=== PATIENT | female | born 1980 | race Two or more races ===

== ENCOUNTER 2017-01-23 16:43 | Emergency (ER) | payer SELFPAY ==
[~2017-01-23] VITALS: Ht 157.5 cm; Wt 54.4 kg
--- NOTE | 2017-01-23 16:45 | NUR ---
AAOX3, bibra 102 for new onset seizure witnessed by cousin, no trauma or injury reported, sz lasted 15 minutes per cousin, ED=680IE/DL and 5mg versed given prior to arrival. Assisted to hospital gown, placed on monitor. Will continuously monitor the patient. Awaiting MD for eval.
[2017-01-23 16:57] LABS: BASOPHILS % (AUTO) 0.5 % (0.0-2.0); EOSINOPHILS # (AUTO) 0.1 /CMM (0.0-0.7); EOSINOPHILS % (AUTO) 1.4 % (0.0-6.0); HEMATOCRIT 39 % (33-45); HEMOGLOBIN 13.1 g/dL (11.5-14.8); LYMPHOCYTES # (AUTO) 2.4 /CMM (0.8-4.8); LYMPHOCYTES % (AUTO) 27.3 % (20.0-44.0); MEAN CORPUSCULAR HEMOGLOBIN 29 PG (26.0-33.0); MEAN CORPUSCULAR HGB CONC 34 g/dl (31.0-36.0); MEAN CORPUSCULAR VOLUME 85 fL (82-100); MONOCYTES # (AUTO) 0.4 /CMM (0.1-1.30); MONOCYTES % (AUTO) 4.4 % (2.0-12.0); NEUTROPHILS # (AUTO) 6.1 /CMM (1.8-8.9); NEUTROPHILS % (AUTO) 66.4 % (43.0-81.0); PLATELET COUNT (AUTO) 345 /CMM (150-450); RDW COEFFICIENT OF VARIATION 12.4 (11.5-15.0); RED BLOOD CELL COUNT(AUTO) 4.55 MIL/uL (4.0-5.2)
--- NOTE | 2017-01-23 16:59 | NUR ---
EKG in progress at BS
[2017-01-23] MEDS ORDERED: LEVETIRACETAM (500MG) 1,000 MG in IV NS 0.9% 100 ML IV ONE (17:00)
[2017-01-23] MEDS ORDERED: IV SET PRIMARY PUMP SET 1 EA INFUS.SET MC ONE (17:06)
[2017-01-23 17:07] LABS: CALCIUM, SERUM 8.8 mg/dL (8.5-10.1); CARBON DIOXIDE 24 mmol/L (21-32); CHLORIDE 105 mmol/L (98-107); CREATININE 0.8 mg/dL (0.6-1.3); GFR 81 mL/min (>60); GLUCOSE 99 mg/dL (74-106); POTASSIUM 3.3 mmol/L (3.5-5.1); SODIUM SERUM 140 mmol/L (136-145); UREA NITROGEN, BLOOD 8 mg/dL (7-18)
[2017-01-23 17:11] LABS: PROTHROMBIN TIME 10.4 SECS (9.5-12.7)
[2017-01-23 17:13] LABS: ALANINE AMINOTRANSFERASE 25 U/L (12-78); ALCOHOL, BLOOD < 3 mg/dL (0-0); ALKALINE PHOSPHATASE 87 U/L (46-116); ASPARTATE AMINOTRANSFERASE 23 U/L (15-37); BILIRUBIN,DIRECT 0.1 mg/dL (0.0-0.2); BILIRUBIN,TOTAL 0.2 mg/dL (0.2-1.0); TOTAL PROTEIN, SERUM 8.1 g/dL (6.4-8.2)
--- NOTE | 2017-01-23 17:44 | NUR ---
PT TAKEN TO CT VIA KARLOS
--- NOTE | 2017-01-23 17:50 | NUR ---
URINE SAMPLE COLLECTED SENT TO LAB
[2017-01-23 18:00] LABS: CANNABINOID, URINE NEGATIVE (NEGATIVE); PHENCYCLIDINE SCREEN,URINE NEGATIVE (NEGATIVE)
[2017-01-23] MEDS ORDERED: KETOROLAC TROMETHAMINE INJ 30 MG/ML VIAL ONE (18:49)
--- NOTE | 2017-01-23 18:50 | NUR ---
PT TAKEN TO CT VIA RMARYANN.
[2017-01-23 18:51] LABS: BILIRUBIN,URINE NEGATIVE (NEGATIVE); BLOOD, URINE 2+ Ery/uL (NEGATIVE); COLOR,URINE YELLOW (YELLOW); KETONES,URINE NEGATIVE (NEGATIVE); LEUKOCYTE ESTERASE ,URINE 3+ (NEGATIVE); NITRITE, URINE NEGATIVE (NEGATIVE); PROTEIN,URINE 1+ mg/dl (NEGATIVE); UGLUCOSE NEGATIVE (NEGATIVE); UROBILINOGEN,URINE 0.2 EU/dL (0.2)
[2017-01-23] MEDS ORDERED: KETOROLAC TROMETHAMINE INJ 30 MG/ML VIAL IV ONE (19:00)
--- NOTE | 2017-01-23 19:01 | NUR ---
GAVE REPORT TO [facility] FOR OLGA LIDIA
--- NOTE | 2017-01-23 19:10 | NUR ---
PT REPORT RECIVED FROM GENTRY PILLAI, PT STATES SHE IS FEELING BETTER AFTER PAIN MEDICATION, PT IN BED VSS, PT FAMILY AT BEDSIDE, WILL CONTINUE TO MONITOR.
[2017-01-23 19:21] LABS: ADD URINE CULTURE YES; APPEARANCE,URINE CLOUDY (CLEAR); BACTERIA,URINE Moderate /HPF (None Seen); SQUAMOUS EPITHELIAL CELL,UR Moderate /HPF (None Seen); WBC,URINE 51-80 /HPF (0-3)
[2017-01-23] MEDS ORDERED: PHENAZOPYRIDINE HCL 200 MG TABLET PO ONE (19:30)
[2017-01-23] MEDS ORDERED: NITROFURANTOIN/NITROFURAN MAC 100 MG CAPSULE PO ONE (19:30)
--- NOTE | 2017-01-23 19:32 | NUR ---
PT FAMILY [phone] BELEN COUSIN AND [phone] TESSY FRIEND TO CALL WHEN PT IS READY TO BE PICKED UP
[2017-01-23] MEDS ORDERED: PHENAZOPYRIDINE HCL 200 MG TABLET ONE (19:42)
[2017-01-23] MEDS ORDERED: NITROFURANTOIN/NITROFURAN MAC 100 MG CAPSULE ONE (19:42)
--- NOTE | 2017-01-23 19:54 | NUR ---
Patient discharged to home in stable condition. Written and verbal after care instructions given. Patient verbalizes understanding of instruction.IV removed. Catheter intact and site benign. Pressure and 4x4 applied to site. No bleeding noted. PT FAMILY AT BESIDE, PT HELPED INTO WHEEL CHAIR AND WHEELED OUT OF THE ER.
[2017-01-23 19:55] VITALS: BP 106/70
== END 2017-01-23 19:56 | disposition home or self-care (01) ==
LOC: ER 16:52
DX: R10.9 Unspecified abdominal pain (principal); R51 Headache
CPT/HCPCS: 36415; 70450-TC; 71010-TC; 80048-TC; 80076-TC; 80305; 81000-TC; 84703-TC; 85025-TC; 85730-TC; 87086-TC; A4606; G0480; J1885; J1953; J7030; Z7610